=== PATIENT | male | born 1935 | race Caucasian/White ===

== ENCOUNTER 2018-06-26 09:48 | Emergency (ER) | payer MEDICARE, BC ==
[2018-06-26] MEDS ORDERED: NS 0.9% 1000 ML* 1,000 ML IV ONE ×2 (10:24→12:09)
--- NOTE | 2018-06-26 10:34 | ED ---
Dizziness - HPI Summary HPI Summary: This patient is a 83 year old male presenting [place] [facility] by with a chief complaint of general dizziness since several days ago. Patient received chemotherapy recently for a spot on his esophagus and has had very little appetite. The pain is rated 0/10 in severity. Symptoms aggravated by nothing. Symptoms alleviated by nothing. Patient states he has two falls in the past days , but denies injury or LOC. Patient additionally reports weakness. Patient denies fever - History Of Current Complaint Chief Complaint: EDDizziness Stated Complaint: FALL ON 06/25 Hx Obtained From: Patient Onset/Duration: Still Present Timing: Constant Severity Currently: Mild Character: Weak, Dizzy Aggravating Factor(s): Nothing Alleviating Factor(s): Nothing Associated Signs And Symptoms: Positive: Negative - fever - Allergies/Home Medications Allergies/Adverse Reactions: Allergies Allergy/AdvReac Type Severity Reaction Status Date / Time No Known Allergies Allergy Verified 04/17/18 11:31 PMH/Surg Hx/FS Hx/Imm Hx Previously Healthy: No Endocrine/Hematology History: Denies: Hx Diabetes Cardiovascular History: Reports: Hx Hypertension - WELL CONTROLLED Denies: Hx Pacemaker/ICD GI History: Comment Only: Other GI Disorders - HERNIA History: Denies: Hx Renal Disease Sensory History: Reports: Hx Cataracts - RIGHT, Hx Contacts or Glasses - READING , Hx Hearing Aid - BILAT Opthamlomology History: Reports: Hx Cataracts - RIGHT, Hx Contacts or Glasses - READING Neurological History: Reports: Other Neuro Impairments/Disorders - HEAD TRAUMA - 6 YRS AGO Psychiatric History: Denies: Hx Panic Disorder - Cancer History Cancer Type, Location and Year: 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ONSILLECTOM[place] CHILD Hx Anesthesia Reactions: No Infectious Disease History: No Infectious Disease History: Denies: Traveled Outside the [place] in Last 30 Days - Family History Known Family History: Negative: Hypertension - Social History Occupation: Retired Lives: With Family Alcohol Use: None Hx Substance Use: No Substance Use Type: Reports: None Hx Tobacco Use: No Smoking Status (MU): Never Smoked Tobacco Review of Systems Negative: Fever Neurological: Other - dizziness Positive: Weakness All Other Systems Reviewed And Are Negative: Yes Physical Exam - Summary Physical Exam Summary: Appearance: Well appearing, no pain distress Skin: warm, dry, reflects adequate perfusion. Skin changes consistent with radiation exposure in anterior upper chest Head/face: normal Eyes: EOMI, FABRICIO ENT: mucous membranes moist Neck: supple, non-tender Respiratory: CTA, breath sounds present Cardiovascular: rate occasionally irregular, no murmur pulses symmetrical Abdomen: non-tender, soft Bowel Sounds: present Musculoskeletal: normal, strength/ROM intact Neuro: normal, sensory motor intact, A&Ox3 Triage Information Reviewed: Yes Vital Signs On Initial Exam: Initial Vitals Temp Pulse Resp BP Pulse Ox 97.5 F 74 20 99/47 99 06/26/18 10:07 06/26/18 10:07 06/26/18 10:07 06/26/18 10:07 06/26/18 10:07 Vital Signs Reviewed: Yes Diagnostics - Vital Signs Vital Signs Temp Pulse Resp BP Pulse Ox 06/26/18 10:07 97.5 F 74 20 99/47 99 - Laboratory Result Diagrams: 06/26/18 11:08 06/26/18 11:08 Lab Statement: Any lab studies that have been ordered have been reviewed, and results considered in the medical decision making process. - Radiology CXR Radiology Interpretation Completed By: Radiologist Summary of Radiographic Findings: CXR reveals, per radiologist, IMPRESSION: NO ACTIVE CARDIOPULMONARY DISEASE. ED physician has reviewed this radiology report. - CT CT Brain CT Interpretation Completed By: Radiologist Summary of CT Findings: CT Brain reveals, per radiologist, IMPRESSION: 1. NO EVIDENCE FOR ACUTE INTRACRANIAL ABNORMALITY. 2. MODERATE SIZE AREAS OF ENCEPHALOMALACIA IN THE INFERIOR LEFT FRONTAL AND ANTERIOR LEFT TEMPORAL LOBES, UNCHANGED. 3. 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 ED physician has reviewed this radiology report. - EKG 1023 Cardiac Rate: Bradycardia EKG Rhythm: Sinus Bradycardia - 55 BPM Summary of EKG Findings: An EKG, taken 1023, reveals Sinus Bradycardia (55 BPM) , normal axis, normal intervals, non-specific ST. Dizzy Course/Dx - Course Course Of Treatment: Nurse's notes reviewed. Patient with a history of esophageal CA receiving chemotherapy and radiation. Last treatments of both were 2 weeks ago. Poor appetite since. Laboratories here are unremarkable. He was feeling much better with IV hydration. I discussed the case with his oncologist who feels that the patient should be discharged home. The patient and family agree to this and will follow up closely with oncology. - Diagnoses Differential Diagnosis/HQI/PQRI: Hypovolemia, Medication Reaction, Metabolic Abnormality, Vasovagal Reaction, Other - Malnutrition Provider Diagnoses: Esophageal cancer, Mild dehydration, Fall - Provider Notifications Discussed Care Of Patient With: Alan Fragoso - Oncology Time Discussed With Above Provider: 12:12 - We discussed patient care with Dr. Fragoso (oncology) and they recommended discharging the patient. Discharge - Sign-Out/Discharge Documenting (check all that apply): Patient Departure - Discharge Plan Condition: Improved Disposition: HOME Patient Education Materials: Dehydration (ED) Referrals: Cara Vásquez MD [Primary Care Provider] - Nawaf Weber MD [Medical Doctor] - Additional Instructions: Call your oncologist first thing in the morning to schedule prompt follow-up. Take in plenty of fluids including dietary support such as boost or instant breakfast. Be sure to have protein supplementation and take a multivitamin. Return if worse, repeat fall, new symptoms or other concerns as discussed. - Billing Disposition and Condition Condition: IMPROVED Disposition: Home - Attestation Statements Document Initiated by Faizan: Yes Documenting Scribe: Allyssa Lee Provider For Whom Faizan is Documenting (Include Credential): Magnus Rothman MD Scribe Attestation: Allyssa Emmanuel, scribed for Magnus Rothman MD on 06/26/18 at 2005. Scribe Documentation Reviewed: Yes Provider Attestation: The documentation as recorded by the jesuibAllyssa lee accurately reflects the service I personally performed and the decisions made by me, Magnus Rothman MD Status of Scribe Document: Viewed
[2018-06-26 11:29] LABS: ABS Basophils 0 10^3/ul (0-0.2); ABS Eosinophils 0 10^3/ul (0-0.6); ABS Lymphocytes 0.4 10^3/ul (1.0-4.8); ABS Monocytes 0.6 10^3/ul (0-0.8); ABS Neutrophils 2.4 10^3/ul (1.5-7.7); ABS Nucleated RBC 0 10^3/ul; Eosinophil % 1.2 %; Hematocrit 27 % (42-52); Hemoglobin 9.5 g/dl (14.0-18.0); Lymphocyte % 10.6 %; Mean Corpuscular HGB Conc 35 g/dl (31-36); Mean Corpuscular Hemoglobin 34 pg (27-31); Mean Corpuscular Volume 96 fL (80-94); Mean Platelet Volume 7.1 fL (7.4-10.4); Nucleated Red Blood Cells % 0.1; Platelet Count 256 10^3/ul (150-450); Red Blood Count 2.84 10^6/ul (4.00-5.40); Red Cell Distribution Width 17 % (10.5-15); White Blood Count 3.4 10^3/ul (3.5-10.8)
[2018-06-26 11:36] LABS: INR 1.09 (0.77-1.02)
[2018-06-26 11:49] LABS: Albumin 3.3 g/dL (3.2-5.2); Albumin/Globulin Ratio 1.5 (1-3); BUN/Creatinine Ratio 16.5 (8-20); C Reactive Protein 7.98 mg/L (<8.01); Calcium 8.8 mg/dL (8.6-10.3); EGFR Non-African American 74.3 (>60); Globulin 2.2 g/dL (2-4); Magnesium 1.4 mg/dL (1.9-2.7); Potassium 3.8 mmol/L (3.5-5.0); Total Bilirubin 0.4 mg/dL (0.2-1.0); Total Protein 5.5 g/dL (6.4-8.9)
[2018-06-26 12:02] LABS: TSH (Thyroid Stimulating Horm) 0.93 mcIU/mL (0.34-5.60)
[2018-06-26 12:45] VITALS: BP 118/54
== END 2018-06-26 12:45 | disposition home or self-care (01) ==
LOC: ED 09:48
DX: C15.9 Malignant neoplasm of esophagus, unspecified (principal); E86.0 Dehydration; R00.1 Bradycardia, unspecified; R53.1 Weakness; Z91.81 History of falling
CPT/HCPCS: 36415; 70450; 71045; 80053; 83605; 83735; 83880; 84443; 84484; 85025; 85610; 86140; 87040; 93005; 96360; 96361; 99282

== ENCOUNTER 2021-07-15 11:17 | Inpatient (IN) ==
[~2021-07-15 11:17] MED LIST: Buffered Lidocaine 1% SYRIN 1 ml INTRADERM ONE; Lactated Ringers 1000 ml BAG 1,000 ML IV SCH
[2021-07-15] MEDS ORDERED: cefTRIAXone 2 GM ADDV.VIAL ONE ×2 (11:57→12:27)
[2021-07-15] MEDS ORDERED: Ondansetron 4 mg VIAL 2 MG/ML 2 ml VIAL ONE (13:55)
[2021-07-15] MEDS ORDERED: Propofol 10 MG/ML 20 ML BTL ONE (13:55)
[2021-07-15] MEDS ORDERED: Lidocaine 2% PF 5 ML VIAL ONE (13:55)
[2021-07-15] MEDS ORDERED: fentaNYL 100 mcg/2 ml 50 MCG/ML VIAL ONE (13:56)
[2021-07-15] MEDS ORDERED: Iohexol 180 (CONTRAST) 20 ML SDV IV ONE (15:25)
[2021-07-15] MEDS ORDERED: DiMENhydriNATE IV 50 mg/ml 1 ml VIAL IV PUSH PRN (15:59)
[2021-07-15] MEDS ORDERED: oxyCODONE/Acetamin 5/325 mg TAB PO PRN (15:59)
[2021-07-15] MEDS ORDERED: HYDROmorphone 1 MG/1 ML SYRINGE IV PRN (15:59)
[2021-07-15] MEDS ORDERED: Naloxone 0.4 mg VIAL 0.4 mg/ml 1 ml VIAL IV PRN (15:59)
[2021-07-15] MEDS ORDERED: Rocuronium 50 mg VIAL 10 mg/ml 5 ml VIAL (50 mg) ONE (16:10)
[2021-07-15] MEDS ORDERED: Metoprolol Tartrate 5 mg VIAL 5 ml VIAL (1 mg/ml) ONE (18:43)
[2021-07-15] MEDS ORDERED: Metoprolol Tartrate 5 mg VIAL 5 ml VIAL (1 mg/ml) IV ONE (18:45)
[2021-07-15 18:55] LABS: Hematocrit 37 % (42-52); Hemoglobin 12.6 g/dL (14.0-18.0); Mean Corpuscular HGB Conc 34 g/dL (31-36); Mean Corpuscular Hemoglobin 33 pg (27-31); Mean Corpuscular Volume 97 fL (80-94); Red Blood Count 3.82 10^6 /uL (4.18-5.48); White Blood Count 8.8 10^3/uL (3.5-10.8)
[2021-07-15 18:56] LABS: ABS Basophils 0.1 10^3/ul (0-0.2); ABS Eosinophils 0.1 10^3/ul (0-0.6); ABS Lymphocytes 0.4 10^3/ul (1.0-4.8); ABS Monocytes 0.3 10^3/ul (0-0.8); ABS Neutrophils 7.9 10^3/ul (1.5-7.7); Eosinophil % 1.1 %; Lymphocyte % 5.1 %; Mean Platelet Volume 7.6 fL (7.4-10.4); Platelet Count 235 10^3/uL (150-450); Red Cell Distribution Width 14 % (10-15)
[2021-07-15 19:05] LABS: Anion Gap 6 mmol/L (2-11); Blood Urea Nitrogen 24 mg/dL (6-24); CO2 Carbon Dioxide 28 mmol/L (22-32); Calcium 8.7 mg/dL (8.6-10.3); Chloride 102 mmol/L (101-111); Glucose 124 mg/dL (70-100); Phosphorus 2.8 mg/dL (2.5-5.0); Potassium 3.9 mmol/L (3.5-5.0); Sodium 136 mmol/L (135-145); eGFR CKD-EPI 35.5 (>60)
[2021-07-15] MEDS ORDERED: hydrALAZINE 20 mg/ml 1 ML Vial IV ONE (19:10)
[2021-07-15] MEDS: hydrALAZINE 20 mg/ml 1 ML Vial IV IV SLOW PU PRN (19:11)
[2021-07-16 06:19] LABS: ABS Lymphocytes 0.5 10^3/ul (1.0-4.8); ABS Monocytes 0.6 10^3/ul (0-0.8); ABS Neutrophils 6.5 10^3/ul (1.5-7.7); Eosinophil % 0.1 %; Hematocrit 37 % (42-52); Hemoglobin 12.8 g/dL (14.0-18.0); Lymphocyte % 6.7 %; Mean Corpuscular HGB Conc 34 g/dL (31-36); Mean Corpuscular Hemoglobin 33 pg (27-31); Mean Corpuscular Volume 97 fL (80-94); Mean Platelet Volume 7.7 fL (7.4-10.4); Nucleated Red Blood Cells % 0.1; Platelet Count 252 10^3/uL (150-450); Red Blood Count 3.86 10^6 /uL (4.18-5.48); Red Cell Distribution Width 14 % (10-15); White Blood Count 7.6 10^3/uL (3.5-10.8)
[2021-07-16 06:31] LABS: Calcium 8.6 mg/dL (8.6-10.3); Phosphorus 3.4 mg/dL (2.5-5.0); Potassium 4.8 mmol/L (3.5-5.0); eGFR CKD-EPI 37.4 (>60)
[2021-07-16 20:18] LABS: Free T4 < 0.25 ng/dL (0.61-1.12)
[2021-07-16 20:19] LABS: Total T3 28 ng/dL (87-178)
[2021-07-17] MEDS: hydrALAZINE 20 mg/ml 1 ML Vial IV IV SLOW PU PRN (08:18)
[2021-07-17 10:35] VITALS: BP 164/84
== END 2021-07-17 13:35 | disposition home or self-care (01) | DRG 669 ==
LOC: OR 11:17 → OBSVTOIN 20:37 → SSU 20:37 → INTOOBSV 20:37 → SUATTDRO 07-16 12:00
PROVIDERS: ADMIT Urology; ATTEND Family Medicine

== ENCOUNTER 2021-09-27 10:03 | Observation (INO) ==
[2021-09-27 11:35] LABS: ABS Eosinophils 0.1 10^3/ul (0-0.6); ABS Lymphocytes 0.3 10^3/ul (1.0-4.8); ABS Monocytes 0.8 10^3/ul (0-0.8); ABS Neutrophils 13.6 10^3/ul (1.5-7.7); Eosinophil % 0.6 %; Hematocrit 33 % (42-52); Hemoglobin 11.2 g/dL (14.0-18.0); Lymphocyte % 2.3 %; Mean Corpuscular HGB Conc 35 g/dL (31-36); Mean Corpuscular Hemoglobin 34 pg (27-31); Mean Corpuscular Volume 97 fL (80-94); Mean Platelet Volume 6.7 fL (7.4-10.4); Platelet Count 349 10^3/uL (150-450); Red Blood Count 3.34 10^6 /uL (4.18-5.48); Red Cell Distribution Width 15 % (10-15); White Blood Count 14.9 10^3/uL (3.5-10.8)
[2021-09-27 11:49] LABS: Activated Partial Thrombo Time 31.1 seconds (26.0-38.0); INR 1.13 (0.86-1.15)
[2021-09-27 12:07] LABS: Albumin/Globulin Ratio 1.6 (1-3); C Reactive Protein 26.9 mg/L (<8.01); Calcium 8.7 mg/dL (8.6-10.3); Globulin 2.5 g/dL (2-4); Potassium 3.9 mmol/L (3.5-5.0); Total Bilirubin 0.6 mg/dL (0.2-1.0); Total Protein 6.5 g/dL (6.4-8.9)
[2021-09-27] MEDS ORDERED: cefTRIAXone 2 GM ADDV.VIAL 2 GM in NS 0.9% 100 ml BAG 100 ML IVPB ONE (13:23)
[2021-09-27 13:34] LABS: High Sensitivity Troponin 1 Hr 12 pg/mL (<20)
[2021-09-27 14:12] LABS: Urine Appearance Cloudy; Urine Bilirubin Negative (Negative); Urine Blood 3+ (Negative); Urine Color Yellow; Urine Glucose Negative (Negative); Urine Ketones Negative (Negative); Urine Nitrite Negative (Negative); Urine Protein 2+(100 mg/dL) (Negative); Urine Specific Gravity 1.011 (1.002-1.030); Urine Urobilinogen Negative (Negative)
[2021-09-27 14:30] LABS: Urine Bacteria Absent (Absent); Urine Red Blood Cell 3+(>10/hpf) (Absent); Urine Squamous Epithelial Cell Present (Absent); Urine White Blood Cell 3+(>20/hpf) (Absent)
[2021-09-27 16:04] LABS: TSH Ultra Thyroid Stim Horm 17.82 mcIU/mL (0.34-5.60)
[2021-09-27 16:06] LABS: Free T4 0.95 ng/dL (0.61-1.12)
[2021-09-27] MEDS ORDERED: Enoxaparin 40 MG/0.4 ML SYR SUBCUT SCH (17:00)
[2021-09-28 06:40] LABS: ABS Basophils 0.1 10^3/ul (0-0.2); ABS Eosinophils 0.3 10^3/ul (0-0.6); ABS Lymphocytes 0.7 10^3/ul (1.0-4.8); ABS Monocytes 0.7 10^3/ul (0-0.8); ABS Neutrophils 10.4 10^3/ul (1.5-7.7); Eosinophil % 2.3 %; Hematocrit 29 % (42-52); Lymphocyte % 5.6 %; Mean Corpuscular HGB Conc 35 g/dL (31-36); Mean Corpuscular Hemoglobin 34 pg (27-31); Mean Corpuscular Volume 96 fL (80-94); Mean Platelet Volume 6.9 fL (7.4-10.4); Platelet Count 304 10^3/uL (150-450); Red Blood Count 2.98 10^6 /uL (4.18-5.48); Red Cell Distribution Width 14 % (10-15); White Blood Count 12.1 10^3/uL (3.5-10.8)
[2021-09-28 07:10] LABS: Calcium 8.4 mg/dL (8.6-10.3); Potassium 4.2 mmol/L (3.5-5.0); eGFR CKD-EPI 48.7 (>60)
[2021-09-28] MEDS ORDERED: cefTRIAXone 1 gm/50 mL D5W 1 GM/50 ML BAG IV SCH (09:00)
[2021-09-28 12:47] VITALS: BP 142/59
== END 2021-09-28 14:50 | disposition home or self-care (01) ==
LOC: ED 10:03 → EDHOLD 14:48 → INTOOBSV 14:48 → MEDTELE 16:31
PROVIDERS: ADMIT Physician Assistant; ATTEND Hospitalist

== ENCOUNTER 2021-12-27 19:52 | Inpatient (IN) ==
[2021-12-27] MEDS ORDERED: Lidocaine 4% GEL 10 GM TUBE TOPICAL ONE (20:40)
[2021-12-27] MEDS ORDERED: Tetan/Diph/Pertus SYR(Tdap) 0.5 ML SYR(BOOSTRIX) use SYR contains LATEX IM ONE (20:40)
[2021-12-27] MEDS ORDERED: Lidocaine 4% TOPICAL 50 ML TOP.SOLN ONE (20:44)
[2021-12-28] MEDS: Enoxaparin 40 MG/0.4 ML SYR SUBCUT SCH ×2 (02:38→20:36)
[2021-12-28 09:05] LABS: Hematocrit 25 % (42-52); Hemoglobin 8.3 g/dL (14.0-18.0); Mean Corpuscular HGB Conc 34 g/dL (31-36); Mean Corpuscular Hemoglobin 31 pg (27-31); Mean Corpuscular Volume 92 fL (80-94); Mean Platelet Volume 6.5 fL (7.4-10.4); Platelet Count 522 10^3/uL (150-450); Red Blood Count 2.67 10^6 /uL (4.18-5.48); Red Cell Distribution Width 15 % (10-15); White Blood Count 14.4 10^3/uL (3.5-10.8)
[2021-12-28 09:29] LABS: ABS Eosinophils 0.1 10^3/ul (0-0.6); ABS Lymphocytes 0.5 10^3/ul (1.0-4.8); ABS Monocytes 1.1 10^3/ul (0-0.8); ABS Neutrophils 12.7 10^3/ul (1.5-7.7); Eosinophil % 0.4 %; Lymphocyte % 3.3 %; RBC Morphology Normal (Normal)
[2021-12-28] MEDS: Simvastatin 20 mg TAB (NF) PO SCH (09:33)
[2021-12-28 09:50] LABS: Calcium 8.2 mg/dL (8.6-10.3); Potassium 3.7 mmol/L (3.5-5.0); eGFR CKD-EPI 73.3 (>60)
[2021-12-28] MEDS: cefTRIAXone 1 gm/50 mL D5W 1 GM/50 ML BAG IV SCH (15:41)
[2021-12-29 06:02] LABS: ABS Basophils 0.1 10^3/ul (0-0.2); ABS Eosinophils 0.1 10^3/ul (0-0.6); ABS Lymphocytes 0.5 10^3/ul (1.0-4.8); ABS Monocytes 1.1 10^3/ul (0-0.8); ABS Neutrophils 12.1 10^3/ul (1.5-7.7); Eosinophil % 0.7 %; Hematocrit 25 % (42-52); Hemoglobin 8.1 g/dL (14.0-18.0); Lymphocyte % 3.6 %; Mean Corpuscular HGB Conc 33 g/dL (31-36); Mean Corpuscular Hemoglobin 30 pg (27-31); Mean Corpuscular Volume 92 fL (80-94); Mean Platelet Volume 6.5 fL (7.4-10.4); Platelet Count 509 10^3/uL (150-450); Red Blood Count 2.72 10^6 /uL (4.18-5.48); Red Cell Distribution Width 15 % (10-15); White Blood Count 13.9 10^3/uL (3.5-10.8)
[2021-12-29 06:37] LABS: Albumin/Globulin Ratio 1.4 (1-3); Calcium 8.5 mg/dL (8.6-10.3); Globulin 2.2 g/dL (2-4); Magnesium 1.7 mg/dL (1.9-2.7); Phosphorus 2.5 mg/dL (2.5-5.0); Potassium 3.6 mmol/L (3.5-5.0); Total Bilirubin 0.4 mg/dL (0.2-1.0); Total Protein 5.2 g/dL (6.4-8.9); eGFR CKD-EPI 79.9 (>60)
[2021-12-29] MEDS ORDERED: Magnesium Sulfate IV 3 GM in NS 0.9% 100 ml BAG 100 ML IVPB ONE (06:50)
[2021-12-29] MEDS ORDERED: Magnesium Sulfate 2 GM IV (Premix) IVPB ONE (07:00)
[2021-12-29] MEDS ORDERED: Magnesium Sulfate 1 GM IV 1 GM/100 ML BAG IV ONE (08:00)
[2021-12-29] MEDS: Simvastatin 20 mg TAB (NF) PO SCH (08:54)
[2021-12-29] MEDS ORDERED: NS 0.9% 1000 ml BAG 1,000 ML IV SCH ×2 (14:30→18:30)
[2021-12-29] MEDS ORDERED: NS 0.9% 500 ml BAG 500 ML IV SCH (15:00)
[2021-12-29] MEDS: cefTRIAXone 1 gm/50 mL D5W 1 GM/50 ML BAG IV SCH (16:49)
[2021-12-29] MEDS: Enoxaparin 40 MG/0.4 ML SYR SUBCUT SCH (20:50)
[2021-12-30 05:53] LABS: ABS Basophils 0.1 10^3/ul (0-0.2); ABS Eosinophils 0.2 10^3/ul (0-0.6); ABS Lymphocytes 0.5 10^3/ul (1.0-4.8); ABS Monocytes 0.9 10^3/ul (0-0.8); ABS Neutrophils 9.8 10^3/ul (1.5-7.7); Eosinophil % 1.7 %; Hematocrit 22 % (42-52); Hemoglobin 7.2 g/dL (14.0-18.0); Lymphocyte % 4.5 %; Mean Corpuscular HGB Conc 33 g/dL (31-36); Mean Corpuscular Hemoglobin 31 pg (27-31); Mean Corpuscular Volume 93 fL (80-94); Mean Platelet Volume 6.7 fL (7.4-10.4); Platelet Count 461 10^3/uL (150-450); Red Blood Count 2.36 10^6 /uL (4.18-5.48); Red Cell Distribution Width 14 % (10-15); White Blood Count 11.5 10^3/uL (3.5-10.8)
[2021-12-30 06:32] LABS: Calcium 7.9 mg/dL (8.6-10.3); Magnesium 2.1 mg/dL (1.9-2.7); Potassium 3.8 mmol/L (3.5-5.0); eGFR CKD-EPI 83.1 (>60)
[2021-12-30] MEDS: Simvastatin 20 mg TAB (NF) PO SCH (08:14)
[2021-12-30] MEDS ORDERED: NS 0.9% 1000 ml BAG 1,000 ML IV SCH (12:30)
[2021-12-30] MEDS: cefTRIAXone 1 gm/50 mL D5W 1 GM/50 ML BAG IV SCH (14:53)
[2021-12-30] MEDS: Enoxaparin 40 MG/0.4 ML SYR SUBCUT SCH (20:47)
[2021-12-31 06:42] LABS: Hematocrit 24 % (42-52); Hemoglobin 7.8 g/dL (14.0-18.0); Mean Corpuscular HGB Conc 33 g/dL (31-36); Mean Corpuscular Hemoglobin 31 pg (27-31); Mean Corpuscular Volume 93 fL (80-94); Mean Platelet Volume 6.8 fL (7.4-10.4); Platelet Count 497 10^3/uL (150-450); Red Blood Count 2.52 10^6 /uL (4.18-5.48); Red Cell Distribution Width 15 % (10-15); White Blood Count 15.1 10^3/uL (3.5-10.8)
[2021-12-31 07:09] LABS: Calcium 8.1 mg/dL (8.6-10.3); Magnesium 1.9 mg/dL (1.9-2.7); Potassium 4.1 mmol/L (3.5-5.0); eGFR CKD-EPI 84.2 (>60)
[2021-12-31] MEDS: Simvastatin 20 mg TAB (NF) PO SCH (08:41)
[2021-12-31 11:38] VITALS: BP 103/54
== END 2021-12-31 13:50 | disposition home or self-care (01) | DRG 872 ==
LOC: ED 19:52 → EDHOLD 19:52 → SUATTDRO 21:49 → SSU 12-28 01:43
PROVIDERS: ADMIT Student in an Organized Health Care Education/Training Program; ATTEND Internal Medicine

== ENCOUNTER 2022-01-22 13:45 | Inpatient (IN) ==
[2022-01-22 16:59] LABS: Albumin 3.2 g/dL (3.2-5.2); CO2 Carbon Dioxide 18 mmol/L (22-32); Calcium 8.9 mg/dL (8.6-10.3); Chloride 99 mmol/L (101-111); Magnesium 2.1 mg/dL (1.9-2.7); Sodium 128 mmol/L (135-145)
[2022-01-22 17:04] LABS: Anion Gap 11 mmol/L (2-11)
[2022-01-22 17:05] LABS: ALT 16 U/L (7-52); Albumin/Globulin Ratio 1.1 (1-3); Alkaline Phosphatase 64 U/L (35-149); Blood Urea Nitrogen 36 mg/dL (6-24); C Reactive Protein 76.94 mg/L (<8.01); Globulin 2.8 g/dL (2-4); Glucose 162 mg/dL (70-100); eGFR CKD-EPI 62.1 (>60)
[2022-01-22] MEDS ORDERED: Lactated Ringers 1000 ml BAG 1,000 ML IV ONE (19:06)
[2022-01-22] MEDS ORDERED: Iodixanol (CONTRAST) 320 MG/ML 100 ML SDV IV ONE (19:50)
[2022-01-22] MEDS ORDERED: Al Hydrox/Mg Hydrox/Simet LIQ 30 ML UDC PO PRN (19:55)
[2022-01-22] MEDS ORDERED: NS 0.9% 1000 ml BAG 1,000 ML IV SCH (20:00)
[2022-01-22 20:38] LABS: ABS Lymphocytes 0.3 10^3/ul (1.0-4.8); ABS Monocytes 0.3 10^3/ul (0-0.8); ABS Neutrophils 15.1 10^3/ul (1.5-7.7); Hematocrit 25 % (42-52); Hemoglobin 7.8 g/dL (14.0-18.0); Lymphocyte % 2.1 %; Mean Corpuscular HGB Conc 31 g/dL (31-36); Mean Corpuscular Hemoglobin 29 pg (27-31); Mean Corpuscular Volume 91 fL (80-94); Mean Platelet Volume 6.3 fL (7.4-10.4); Platelet Count 627 10^3/uL (150-450); Red Blood Count 2.72 10^6 /uL (4.18-5.48); Red Cell Distribution Width 16 % (10-15); White Blood Count 15.8 10^3/uL (3.5-10.8)
[2022-01-22 21:32] LABS: Potassium Redraw 4.6 mmol/L (3.5-5.0)
[2022-01-22 21:50] LABS: Urine Appearance Slightly Cloudy; Urine Bilirubin Negative (Negative); Urine Blood 1+ (Small) (Negative); Urine Color Yellow; Urine Glucose Negative (Negative); Urine Ketones Negative (Negative); Urine Nitrite Negative (Negative); Urine Protein Trace (Negative); Urine Specific Gravity 1.025 (1.005-1.030); Urine Urobilinogen 0.2 (Negative) (Negative)
[2022-01-22 22:23] LABS: Urine Bacteria Absent (Absent); Urine Red Blood Cell 2+(6-10/hpf) (Absent); Urine Squamous Epithelial Cell Present (Absent); Urine White Blood Cell 3+(>20/hpf) (Absent)
[2022-01-22] MEDS ORDERED: metroNIDAZOLE IV 500 MG/100ML - ED ONCE IVPB ONE (23:00)
[2022-01-23] MEDS: Heparin 5000 UNITS/ML 1 mL VIAL SUBCUT SCH ×4 (04:35→21:55)
[2022-01-23] MEDS: metroNIDAZOLE IV 500 MG/100ML 500 MG/100 ML BAG IVPB SCH ×3 (05:46→21:55)
[2022-01-23 05:59] LABS: ABS Lymphocytes 0.6 10^3/ul (1.0-4.8); ABS Monocytes 1.2 10^3/ul (0-0.8); Hematocrit 22 % (42-52); Hemoglobin 7.4 g/dL (14.0-18.0); Lymphocyte % 3.3 %; Mean Corpuscular HGB Conc 33 g/dL (31-36); Mean Corpuscular Hemoglobin 29 pg (27-31); Mean Corpuscular Volume 89 fL (80-94); Mean Platelet Volume 6.5 fL (7.4-10.4); Platelet Count 580 10^3/uL (150-450); Red Blood Count 2.51 10^6 /uL (4.18-5.48); Red Cell Distribution Width 15 % (10-15); White Blood Count 16.7 10^3/uL (3.5-10.8)
[2022-01-23 06:51] LABS: Calcium 8.2 mg/dL (8.6-10.3); Potassium 4.3 mmol/L (3.5-5.0); eGFR CKD-EPI 72.5 (>60)
[2022-01-23] MEDS: CMC:Simvastatin 20 mg TAB (NF) PO SCH (08:11)
[2022-01-23] MEDS: Aspirin EC 81 mg TAB.EC (enteric coated) PO SCH (08:11)
[2022-01-23] MEDS ORDERED: Dexamethasone IV 4 MG/ML 5 ML VIAL (20 MG) IVPB SCH (09:00)
[2022-01-24] MEDS: Heparin 5000 UNITS/ML 1 mL VIAL SUBCUT SCH ×3 (06:03→21:24)
[2022-01-24 06:33] LABS: Hematocrit 23 % (42-52); Hemoglobin 7.4 g/dL (14.0-18.0); Mean Corpuscular HGB Conc 33 g/dL (31-36); Mean Corpuscular Hemoglobin 29 pg (27-31); Mean Corpuscular Volume 89 fL (80-94); Platelet Count 574 10^3/uL (150-450); Red Blood Count 2.57 10^6 /uL (4.18-5.48); Red Cell Distribution Width 15 % (10-15); White Blood Count 17.9 10^3/uL (3.5-10.8)
[2022-01-24 06:51] LABS: Calcium 8.1 mg/dL (8.6-10.3); Potassium 4.1 mmol/L (3.5-5.0); eGFR CKD-EPI 70.8 (>60)
[2022-01-24] MEDS: metroNIDAZOLE IV 500 MG/100ML 500 MG/100 ML BAG IVPB SCH ×3 (07:25→21:26)
[2022-01-24] MEDS: CMC:Simvastatin 20 mg TAB (NF) PO SCH (08:37)
[2022-01-24] MEDS: Aspirin EC 81 mg TAB.EC (enteric coated) PO SCH (08:37)
[2022-01-25] MEDS: Heparin 5000 UNITS/ML 1 mL VIAL SUBCUT SCH ×3 (06:00→21:38)
[2022-01-25] MEDS: metroNIDAZOLE IV 500 MG/100ML 500 MG/100 ML BAG IVPB SCH ×3 (06:01→21:43)
[2022-01-25] MEDS: CMC:Simvastatin 20 mg TAB (NF) PO SCH (09:04)
[2022-01-25] MEDS: Aspirin EC 81 mg TAB.EC (enteric coated) PO SCH (09:04)
[2022-01-25] MEDS ORDERED: NS 0.9% 1000 ml BAG 1,000 ML IV ONE (10:17)
[2022-01-25 11:01] LABS: Hematocrit 27 % (42-52); Hemoglobin 8.5 g/dL (14.0-18.0); Mean Corpuscular HGB Conc 32 g/dL (31-36); Mean Corpuscular Hemoglobin 29 pg (27-31); Mean Corpuscular Volume 90 fL (80-94); Mean Platelet Volume 6.6 fL (7.4-10.4); Platelet Count 630 10^3/uL (150-450); Red Blood Count 2.96 10^6 /uL (4.18-5.48); Red Cell Distribution Width 16 % (10-15); White Blood Count 24.4 10^3/uL (3.5-10.8)
[2022-01-25 11:09] LABS: Albumin 2.7 g/dL (3.2-5.2); Albumin/Globulin Ratio 1.4 (1-3); Calcium 8.1 mg/dL (8.6-10.3); Potassium 3.8 mmol/L (3.5-5.0); Total Bilirubin 0.5 mg/dL (0.2-1.0); Total Protein 4.7 g/dL (6.4-8.9); eGFR CKD-EPI 94.7 (>60)
[2022-01-25 11:39] LABS: ABS Basophils 0.2 10^3/ul (0-0.2); ABS Lymphocytes 0.6 10^3/ul (1.0-4.8); ABS Monocytes 1.7 10^3/ul (0-0.8); ABS Neutrophils 21.9 10^3/ul (1.5-7.7); Eosinophil % 0.1 %; Lymphocyte % 2.4 %
[2022-01-26] MEDS: metroNIDAZOLE IV 500 MG/100ML 500 MG/100 ML BAG IVPB SCH (05:42)
[2022-01-26] MEDS: Heparin 5000 UNITS/ML 1 mL VIAL SUBCUT SCH ×3 (05:45→20:03)
[2022-01-26 06:27] LABS: Hematocrit 24 % (42-52); Hemoglobin 7.8 g/dL (14.0-18.0); Mean Corpuscular HGB Conc 32 g/dL (31-36); Mean Corpuscular Hemoglobin 29 pg (27-31); Mean Corpuscular Volume 90 fL (80-94); Mean Platelet Volume 6.9 fL (7.4-10.4); Platelet Count 537 10^3/uL (150-450); Red Cell Distribution Width 15 % (10-15); White Blood Count 23.5 10^3/uL (3.5-10.8)
[2022-01-26 06:48] LABS: Albumin 2.5 g/dL (3.2-5.2); Albumin/Globulin Ratio 1.5 (1-3); Calcium 7.5 mg/dL (8.6-10.3); Globulin 1.7 g/dL (2-4); Total Bilirubin 0.5 mg/dL (0.2-1.0); Total Protein 4.2 g/dL (6.4-8.9)
[2022-01-26 08:38] LABS: Magnesium 1.8 mg/dL (1.9-2.7)
[2022-01-26] MEDS: Aspirin EC 81 mg TAB.EC (enteric coated) PO SCH (08:54)
[2022-01-26] MEDS: CMC:Simvastatin 20 mg TAB (NF) PO SCH (08:55)
[2022-01-26] MEDS: NS 0.9% 1000 ml BAG 1,000 ML IV SCH (08:57)
[2022-01-26] MEDS ORDERED: Magnesium Sulfate 2 gm BAG 2 GM/50 ML BAG IVPB ONE (08:59)
[2022-01-26 10:16] LABS: RBC Morphology Normal (Normal)
[2022-01-26 10:17] LABS: ABS Lymphocytes 0.8 10^3/ul (1.0-4.8); ABS Monocytes 1.4 10^3/ul (0-0.8); ABS Neutrophils 21.3 10^3/ul (1.5-7.7); Eosinophil % 0.1 %; Lymphocyte % 3.4 %
[2022-01-27] MEDS: Heparin 5000 UNITS/ML 1 mL VIAL SUBCUT SCH ×3 (05:23→20:53)
[2022-01-27] MEDS: NS 0.9% 1000 ml BAG 1,000 ML IV SCH (05:23)
[2022-01-27 06:31] LABS: Hematocrit 24 % (42-52); Hemoglobin 7.9 g/dL (14.0-18.0); Mean Corpuscular HGB Conc 33 g/dL (31-36); Mean Corpuscular Hemoglobin 30 pg (27-31); Mean Corpuscular Volume 89 fL (80-94); Mean Platelet Volume 6.8 fL (7.4-10.4); Platelet Count 491 10^3/uL (150-450); Red Blood Count 2.66 10^6 /uL (4.18-5.48); Red Cell Distribution Width 16 % (10-15); White Blood Count 23.4 10^3/uL (3.5-10.8)
[2022-01-27 06:34] LABS: ABS Lymphocytes 0.7 10^3/ul (1.0-4.8); ABS Monocytes 1.6 10^3/ul (0-0.8); Eosinophil % 0.2 %; Lymphocyte % 2.8 %
[2022-01-27 06:59] LABS: Albumin 2.5 g/dL (3.2-5.2); Albumin/Globulin Ratio 1.5 (1-3); Calcium 7.3 mg/dL (8.6-10.3); Globulin 1.7 g/dL (2-4); Potassium 3.6 mmol/L (3.5-5.0); Total Bilirubin 0.4 mg/dL (0.2-1.0); Total Protein 4.2 g/dL (6.4-8.9); eGFR CKD-EPI 66.2 (>60)
[2022-01-27] MEDS: Aspirin EC 81 mg TAB.EC (enteric coated) PO SCH (10:24)
[2022-01-27] MEDS: CMC:Simvastatin 20 mg TAB (NF) PO SCH (11:20)
[2022-01-27] MEDS ORDERED: Senna TAB 8.6 mg TAB PO PRN (11:47)
[2022-01-28] MEDS: Heparin 5000 UNITS/ML 1 mL VIAL SUBCUT SCH ×3 (05:31→20:56)
[2022-01-28] MEDS: NS 0.9% 1000 ml BAG 1,000 ML IV SCH ×2 (05:32→23:54)
[2022-01-28 06:46] LABS: Albumin 2.5 g/dL (3.2-5.2); Albumin/Globulin Ratio 1.4 (1-3); Calcium 7.3 mg/dL (8.6-10.3); Globulin 1.8 g/dL (2-4); Magnesium 1.9 mg/dL (1.9-2.7); Potassium 3.7 mmol/L (3.5-5.0); Total Bilirubin 0.4 mg/dL (0.2-1.0); Total Protein 4.3 g/dL (6.4-8.9); eGFR CKD-EPI 79.9 (>60)
[2022-01-28 06:48] LABS: ABS Lymphocytes 0.5 10^3/ul (1.0-4.8); ABS Monocytes 1.1 10^3/ul (0-0.8); ABS Neutrophils 22.1 10^3/ul (1.5-7.7); Hematocrit 25 % (42-52); Hemoglobin 7.9 g/dL (14.0-18.0); Lymphocyte % 2.3 %; Mean Corpuscular HGB Conc 31 g/dL (31-36); Mean Corpuscular Hemoglobin 28 pg (27-31); Mean Corpuscular Volume 91 fL (80-94); Mean Platelet Volume 7.5 fL (7.4-10.4); Platelet Count 457 10^3/uL (150-450); Red Blood Count 2.78 10^6 /uL (4.18-5.48); Red Cell Distribution Width 16 % (10-15); White Blood Count 23.8 10^3/uL (3.5-10.8)
[2022-01-28] MEDS: Aspirin EC 81 mg TAB.EC (enteric coated) PO SCH (07:31)
[2022-01-28] MEDS: CMC:Simvastatin 20 mg TAB (NF) PO SCH (07:31)
[2022-01-28 10:16] LABS: Ferritin 691.9 ng/mL (24-336)
[2022-01-28 23:55] LABS: Hematocrit 26 % (42-52); Hemoglobin 8.5 g/dL (14.0-18.0)
[2022-01-29] MEDS ORDERED: Lidocaine 1% w EPI 1:200,000 SDV 30 ML VIAL INJ ONE (01:40)
[2022-01-29] MEDS ORDERED: Iohexol 350 (CONTRAST) 500 ML MDV IV ONE (02:10)
[2022-01-29 02:42] LABS: Hematocrit 27 % (42-52); Hemoglobin 8.4 g/dL (14.0-18.0); Mean Corpuscular HGB Conc 32 g/dL (31-36); Mean Corpuscular Hemoglobin 29 pg (27-31); Mean Corpuscular Volume 91 fL (80-94); Mean Platelet Volume 7.5 fL (7.4-10.4); Platelet Count 547 10^3/uL (150-450); Red Blood Count 2.92 10^6 /uL (4.18-5.48); Red Cell Distribution Width 16 % (10-15); White Blood Count 35.2 10^3/uL (3.5-10.8)
[2022-01-29 03:25] LABS: Activated Partial Thrombo Time 26.9 seconds (26.0-38.0); INR 1.23 (0.89-1.11)
[2022-01-29] MEDS: NS 0.9% 1000 ml BAG 1,000 ML IV SCH (04:17)
[2022-01-29 04:46] LABS: Hematocrit 24 % (42-52); Hemoglobin 7.7 g/dL (14.0-18.0)
[2022-01-29 06:13] LABS: Hematocrit 24 % (42-52); Hemoglobin 7.6 g/dL (14.0-18.0)
[2022-01-29] MEDS: CMC:Simvastatin 20 mg TAB (NF) PO SCH (08:56)
[2022-01-29] MEDS ORDERED: Pantoprazole VIAL 40 MG VIAL IV SCH (09:00)
[2022-01-29 09:02] VITALS: BP 148/96
[2022-01-30] MEDS ORDERED: Levothyroxine 100 MCG/5 ML VIAL IV SCH (06:00)
== END 2022-01-29 09:02 | disposition short-term general hospital (02) | DRG 41 ==
LOC: EDHOLD 13:45 → ED 13:45 → INTOOBSV 20:00 → OBSVTOIN 20:00 → MED 01-23 03:17 → ICU 01-29 04:05
PROVIDERS: ADMIT Internal Medicine; ATTEND Internal Medicine